=== PATIENT | female | born 1975 | race Caucasian/White ===

== ENCOUNTER 2021-12-17 19:09 | Emergency (ER) | payer MEDICAID, OTHER ==
[2021-12-17 21:56] LABS: CORONAVIRUS COVID-19 NAA POSITIVE (NEGATIVE)
[2021-12-17 22:33] VITALS: BP 103/62; PULSE 86
== END 2021-12-17 22:30 | disposition home or self-care (01) ==
LOC: JD.ED 19:09
DX: U07.1 COVID-19 (principal); Z91.040 Latex allergy status; Z88.2 Allergy status to sulfonamides; Z79.899 Other long term (current) drug therapy; Z90.49 Acquired absence of other specified parts of digestive tract
CPT/HCPCS: 0240U; 36415; 71045; 80053; 85025; 86140; 99284

== ENCOUNTER 2022-02-09 21:44 | Emergency (ER) | payer MEDICAID ==
[2022-02-09 22:00] VITALS: BP 107/47; PULSE 73
[2022-02-09] MEDS ORDERED: Lidocaine 1% 10 ML MDV INJECT ONE (23:14)
[2022-02-09] MEDS ORDERED: Bupivacaine 0.5%/EPINEPHrine 1:200,000 30 ML SDV INJECT ONE ×2 (23:14→23:38)
[2022-02-09] MEDS ORDERED: Bupivacaine 0.25%/EPINEPHrine 1:200,000 10 ML SDV INJECT ONE (23:39)
== END 2022-02-10 00:40 | disposition home or self-care (01) ==
LOC: JD.ED 21:44
DX: S01.81XA Laceration without foreign body of other part of head, initial encounter (principal); E66.9 Obesity, unspecified; Z68.32 Body mass index [BMI] 32.0-32.9, adult; Z87.891 Personal history of nicotine dependence; Z91.040 Latex allergy status; Z88.2 Allergy status to sulfonamides; W01.198A Fall on same level from slipping, tripping and stumbling with subsequent striking against other object, initial encounter; Y92.009 Unspecified place in unspecified non-institutional (private) residence as the place of occurrence of the external cause
CPT/HCPCS: 12013; 99282; J3490